=== PATIENT | male | born 1950 | race Caucasian/White ===

== ENCOUNTER 2019-04-02 06:25 | Observation (INO) | payer OTHER ==
[~2019-04-02] VITALS: Ht 177.8 cm; Wt 93.0 kg
[2019-04-02 06:29] VITALS: Ht 177.8 cm; Wt 93.0 kg
--- NOTE | 2019-04-02 06:31 | NUR ---
EKG IN PROGRESS BY BREEZY PINON
--- NOTE | 2019-04-02 06:52 | NUR ---
PT BIB DAUGHTER WITH C/O NAUSEA AND VOMITING MULTIPLE EPISODES X2 DAYS. PT REPORTS LAST EPISODE OF VOMITING AT 0600 THIS MORNING OF PINK EMESIS. PT ALSO C/O CRUSHING LIKE MID STERNAL CHEST PAIN YESTERDAY AT 1600 WHICH LASTED 1 HOUR. PT DENIES ANY CHEST PAIN AT THIS TIME. PT ALSO C/O EPIGASTRIC ABDOMINAL PAIN X2 DAYS, WHICH "WORSENS WHEN I EAT." PT DENIES ANY CONSTIPATION OR DIARHHEA. NO VOMTING NOTED AT THIS TIME. PT ADMITS "I SMOKED A LITTLE WEED THIS MORMING AND I FEEL A LITTLE BETTER." PT REPORTS "I JUST FEEL SICK." PT IS AAOX4, NO DISTRESS NOTED, RESP E/U, SPEAKING IN FULL SENTENCES, SKIN INTACT WARM AND DRY. PT GOWNED AND PLACED ON FULL CM, SINUS BRADYCARDIA, MD AWARE. PT ORIENTED TO ROOM, BED IN LOWEST POSITION AND CALL ARCHER WITHIN REACH. IV ESTABLISHED. MD AT BEDSIDE PERFORMING MSE TO PATIENT. DAUGHTER IS AT THE BEDSIDE. AWAITING FURTHER ORDERS.
--- NOTE | 2019-04-02 07:10 | NUR ---
PT FIRST FOUND RESTING er # 08 hob @ 60 degrees sr up,monitors on,aao,nad.ivf infusing well via iv pump.pt tolerated procedures with no incidents.adult female significant other.awaits test results,reevaluations.
--- NOTE | 2019-04-02 07:20 | NUR ---
GAVE REPORT TO BRANDYN FLORES WHO WILL RESUME FURHTER CARE OF THIS PATIENT
--- NOTE | 2019-04-02 07:22 | NUR ---
pt c/o nausea/left mid back area pains.er md made aware.awaits test results,ct test reevaluations.mykel kumari.
[2019-04-02 07:23] LABS: CALCIUM 8.8 mg/dL (8.5-10.1); CARBON DIOXIDE 26.2 mmol/L (21-32); CREATININE SERUM 1.4 mg/dL (0.7-1.3); POTASSIUM SERUM 4.4 mmol/L (3.5-5.1)
[2019-04-02 07:27] LABS: ALBUMIN 3.8 g/dL (3.4-5.0); BILIRUBIN TOTAL 0.66 mg/dL (0.20-1.00); TOTAL PROTEIN, SERUM 6.9 g/dL (6.4-8.2)
[2019-04-02 07:42] LABS: BASOPHIL % 0.7 % (0-2); PLATELET COUNT 157 x10^3mcL (130-400); RED CELL DISTRIBUTION WIDTH 12.9 % (11.5-14.5)
--- NOTE | 2019-04-02 07:46 | NUR ---
to ct test area via tiaraerkenyetta nad.awaits test results,reevaluations.
--- NOTE | 2019-04-02 08:12 | NUR ---
pt back from ct test area,vs as shown.pt tolerated procedures with no incidents.aao,nad.adult daughter bedside.awaits test results,reevaluations.
--- NOTE | 2019-04-02 09:01 | NUR ---
pt ambulated to/from bathroom to urinate on his own ,urine specimen on hold,pt tolerated procedures with no incidents.awaits reevaluations.tony kumari.adult daughter bedside.
--- NOTE | 2019-04-02 09:18 | NUR ---
donny wilson at bedside for reevaluations.mykel kumari.awaits reevaluations.adult daughter bedside.
--- NOTE | 2019-04-02 11:20 | NUR ---
MD consult at bedside for evaluations/assessments.mykel kumari.pt just ambulated to/from bathroom on his own with no problems.pt tolerated procedures with no incidents.mykel kumari.adult daughter bedside.awaits bed assignment,reevaluations.
--- NOTE | 2019-04-02 11:56 | NUR ---
pt endorsed to/accepted by khurram moran.awaits transport services,reevaluations.
--- NOTE | 2019-04-02 12:10 | NUR ---
RECEIVED PATEINT FROM ER. A/A/OX4. CLEAR SPEECH. TELE#6 APPLIED. SB; HR =58; DENIED CHEST PAIN NOW. BUT C/O N/V. MEDICATION GIVEN IN ER. AMBULATORY; IVHL'D TO L HAND. CALL LIGHT IN REACH.
[2019-04-02 12:11] VITALS: BP 158/79
--- NOTE | 2019-04-02 14:30 | NUR ---
PAITENT SLEEPING WELL. BREATHING EVENLY.
--- NOTE | 2019-04-02 17:07 | NUR ---
INTACTABLE N/V WHEN AWAKE. ZOFRAN 4MG IVP GIVEN. CONTIUE MONITOR.
[2019-04-02 17:36] VITALS: BP 156/76
[2019-04-02] MEDS ORDERED: LAMICTAL100 MG PO (18:13)
[2019-04-02] MEDS ORDERED: LAMOTRIGINE100 M1 PO (18:14)
[2019-04-02] MEDS ORDERED: LIPITOR40 MG PO (18:16)
[2019-04-02] MEDS ORDERED: PROPRANOLOL HCL20 MG PO (18:17)
[2019-04-02] MEDS ORDERED: ESCITALOPRAM10 M1 PO (18:18)
--- NOTE | 2019-04-02 19:30 | NUR ---
C/O NAUSEA, BUT NO VOMITING NOW. 7 UP AND JUICE GIVEN. VOID X2 VIA BRP. ENDORSED CARE TO NOC NURSE.
--- NOTE | 2019-04-02 19:45 | NUR ---
RECEIVED REPORT FROM DAY SHIFT RN. PT RESTING IN BED. NO SOB NOTED. BREATHING EVEN AND UNLABORED ON ROOM AIR. NO C/O N/V/PAIN AT THIS TIME. NO DISTRESS NOTED. IV TO LEFT HAND, SALINE LOCKED. SAFETY MEASURES MAINTAINED. BED IN LOWEST POSITION. SIDE RAILS UP X2. INSTRUCTED PT TO USE THE CALL LIGHT FOR ASSISTANCE. CALL LIGHT WITHIN REACH.
[2019-04-02 20:56] VITALS: BP 136/76
--- NOTE | 2019-04-02 21:41 | NUR ---
ZOFRAN GIVEN FOR NAUSEA.
[2019-04-03 05:26] VITALS: BP 135/77
--- NOTE | 2019-04-03 06:24 | NUR ---
PT RESTED IN INTERVALS THROUGHOUT SHIFT. NO C/O SOB ON ROOM AIR. BREATHING EVEN AND UNLABORED. C/O HEADACHE BUT PT REPORTED RESOLVED WITH ICEPACK. PT SLEEPING AT THIS TIME. NO FACIAL GRIMACING. NO DISTRESS NOTED. IV TO RFA INTACT, SALINE LOCKED. SAFETY MEASURES MAINTAINED. ALL NEEDS ATTENDED TO. CALL LIGHT WITHIN REACH. WILL ENDORSE CONTINUITY OF CARE TO ONCOMING RN.
--- NOTE | 2019-04-03 07:30 | NUR ---
PT IS SITTING UP IN BED AWAITING BREAKFAST, AAOX4. DENIES H/A AND DIZZINESS. TELE [address] READING NSR WITH INTEMITTENT SINUS MANINDER. PT HR 61 AT THIS TIME. NO C/O C/P, PRESSURE OR PALPITATIONS. ABDOMEN SOFT, NONTENDER, NONDISTENDED. BOWEL SOUNDS ACTIVE X 4 QUADS, DENIES N/V/D. IV CATH TO LFA. N/S LOCKED. COVERED WITH CDI DRESSING. NO S/S OF INFECTION OR INFILTRATION. SKIN CDI. NO EDEMA NOTED. PERIPHERAL PULSES MODERATELY PALPABLE. PT DENIES PAIN AND DISCOMFORT AT THIS TIME. CALL LIGHT WITHIN REACH. BED IN LOWEST POSITION. WILL CONTINUE TO MONITOR.
[2019-04-03 08:54] VITALS: BP 110/61
--- NOTE | 2019-04-03 09:51 | NUR ---
PT IS SITTING UP AT BEDSIDE. RESP EVEN AND UNLABORED. NO DISTRESS NOTED. DENIES PAIN. FIBERGLASS TUBE MOLDER REPORTS TEMP OF 100.5F. TYLENOL WILL BE GIVEN. COOLING MEASURES IN PLACE. DUE MEDS GIVEN AND TOLERATED WELL. B/P 110/61, HR 61. NICODERM PATCH REMOVED FROM L SHOULDER. NEW NICODERM PATCH APPLIED TO L UPPER BACK. PT DENIES PAIN AT THIS TIME.
--- NOTE | 2019-04-03 10:54 | NUR ---
OFFERED PT TYLENOL 650 MG PO FOR TEMP OF 100.4F. PT STATED HE WILL DRINK MORE WATER AND MAINTAIN COOLING MEASURES. PT STATED, "I WILL TAKE TYLENOL LATER IF I DON'T FEEL BETTER." EXTRA FLUIDS GIVEN. PT REPOSITIONED FOR COMFORT. CALL LIGHT WITHIN REACH.
--- NOTE | 2019-04-03 11:40 | NUR ---
PT TEMP NOW 99.8F. RESP EVEN AND UNLABORED. NO DISTRESS NOTED. PT HAS REMOVED COOLING MEASURES AND STATED HE DID NOT WANT THEM ON HIM. EXTRA FLUIDS GIVEN AND ENCOURAGED. PT DENIES PAIN AND DISCOMFORT. CALL LIGHT WITHIN REACH. BED IN LOWEST POSITION.
[2019-04-03 12:07] LABS: BASOPHIL % 0.6 % (0-2); CALCIUM 8.4 mg/dL (8.5-10.1); CARBON DIOXIDE 26.8 mmol/L (21-32); CREATININE SERUM 1.3 mg/dL (0.7-1.3); PLATELET COUNT 141 x10^3mcL (130-400); POTASSIUM SERUM 3.7 mmol/L (3.5-5.1); RED CELL DISTRIBUTION WIDTH 12.2 % (11.5-14.5)
--- NOTE | 2019-04-03 12:20 | NUR ---
SPOKE WITH DR. LAMA AND REPORTED PT HAD A TEMPERATURE OF 100.5F EARLIER BUT IT HAS NOW DECREASED TO 99.8F. DR. LAMA WAS INFORMED THAT PT REFUSED TYLENOL 650MG PO AND DOES NOT WISH TO CONTINUE COOLING MEASURES. DR. VENEGAS STATED THE PT IS OKAY TO DISCHARGE HE HAS SPOKEN TO THE PT'S PRIMARY POC AND STATES THE PT WILL FOLLOW UP WITHIN 2 DAYS.
[2019-04-03 13:14] VITALS: BP 110/68
[2019-04-03 13:40] VITALS: BP 110/68
--- NOTE | 2019-04-03 14:30 | NUR ---
PT DISCHARGED TO HOME IN NO DISTRESS. DISCHARGE INSTRUCTIONS REVIEWED. PT EDUCATED THAT PT WILL BE FOLLOWED UP WITH BY [facility] ATTENDANT WITH THE DATE AND TIME OF THE FOLLOW UP APPT WITH HIS PCP. ALL FORMS SIGNED, ALL QUESTIONS ANSWERED. IV CATH TO LFA REMOVED INTACT. SITE WNL. NO S/S OF INFECTION OR INFILTRATION NOTED. COVERED WITH GAUZE AND BANDAID. VS: T 98.5F, HR 56, RR 18, B/P 110/68, O2 SAT 96% ON R/A. PT DENIES PAIN AT TIME OF DISCHARGED. ALL PERSONAL BELONGINGS TAKEN WITH PT. PT AND FAMILY MEMBER ESCORTED TO LOBBY BY [facility].
== END 2019-04-03 14:24 | disposition home or self-care (01) | DRG 313 ==
LOC: ED 06:25 → DU 11:09
PROVIDERS: Emergency Medicine; ADMIT Internal Medicine
DX: R07.89 Other chest pain (principal); F33.9 Major depressive disorder, recurrent, unspecified; F12.129 Cannabis abuse with intoxication, unspecified; R00.1 Bradycardia, unspecified; R10.13 Epigastric pain; R11.2 Nausea with vomiting, unspecified; F31.9 Bipolar disorder, unspecified; F41.9 Anxiety disorder, unspecified; E78.5 Hyperlipidemia, unspecified; F17.210 Nicotine dependence, cigarettes, uncomplicated; I51.7 Cardiomegaly; Z86.718 Personal history of other venous thrombosis and embolism
CPT/HCPCS: G0378; J1644; J1885; J2405; J2550; J7030; Q0092; Q9967

== ENCOUNTER 2019-04-04 18:40 | Emergency (ER) | payer OTHER ==
[~2019-04-04] VITALS: Ht 177.8 cm; Wt 93.0 kg
[~2019-04-04 18:40] MED LIST: ESCITALOPRAM10 M1 PO; LAMICTAL100 MG PO; LAMOTRIGINE100 M1 PO; LIPITOR40 MG PO; PROPRANOLOL HCL20 MG PO
[2019-04-04 18:59] VITALS: Ht 177.8 cm; Wt 93.0 kg
[2019-04-04 20:31] LABS: BASOPHIL % 0.3 % (0-2); PLATELET COUNT 166 x10^3mcL (130-400); RED CELL DISTRIBUTION WIDTH 12.7 % (11.5-14.5)
[2019-04-04 20:39] LABS: CALCIUM 8.3 mg/dL (8.5-10.1); CARBON DIOXIDE 26.8 mmol/L (21-32); CREATININE SERUM 1.4 mg/dL (0.7-1.3); POTASSIUM SERUM 4.1 mmol/L (3.5-5.1)
[2019-04-04 20:43] LABS: ALBUMIN 3.7 g/dL (3.4-5.0); BILIRUBIN TOTAL 1.4 mg/dL (0.20-1.00); TOTAL PROTEIN, SERUM 6.5 g/dL (6.4-8.2)
[2019-04-04 23:13] VITALS: BP 139/82
== END 2019-04-04 23:13 | disposition home or self-care (01) ==
LOC: ED 18:40
PROVIDERS: Emergency Medicine
DX: R11.2 Nausea with vomiting, unspecified (principal); R07.89 Other chest pain; F31.9 Bipolar disorder, unspecified; Z90.89 Acquired absence of other organs; Z90.49 Acquired absence of other specified parts of digestive tract; Z98.890 Other specified postprocedural states
CPT/HCPCS: J1885; J2405; J7030